=== PATIENT | male | born 1965 | race Caucasian/White ===

== ENCOUNTER 2020-01-29 12:59 | Inpatient (IN) | payer BC ==
--- NOTE | 2020-01-29 13:02 | ERPHSYRPT ---
- History of Present Illness Time Seen by Provider: 01/29/20 13:02 Source: patient Exam Limitations: no limitations Physician History: This is a 54-year-old overweight white male who presents with worsening cough and shortness of air over 1 week. Patient was diagnosed with positive Covid test on 01/22/2020. Symptoms did improve over the weekend but then in the last 2 to 3 days his symptoms are worse. He has had no abdominal pain. He had no nausea vomiting or diarrhea. Patient states that opioids of any kind give him significant nausea and vomiting. Patient states he is not known to be allergic to intravenous dye. He has no known kidney disease. He has no known heart disease. Patient states that he does not want any Tylenol. Timing/Duration: week(s) (one) Activities at Onset: rest Severity of Dyspnea-Max: moderate Severity of Dyspnea-Current: moderate Possible Cause: no prior episodes Modifying Factors: Improves With: coughing, exertion Associated Symptoms: cough Allergies/Adverse Reactions: Opioids - Morphine Analogues Allergy (Verified 01/29/20 13:04) Home Medications: No Reportable Medications [No Reported Medications] 01/29/20 [History] Travel Risk - International Travel Have you traveled outside of the country in past 3 weeks: No - Coronavirus Screening Are you exhibiting any of the following symptoms?: Yes Symptoms: Fever, Cough: New Onset, Shortness of Breath, Headaches/Body Aches/Fatigue Close contact with a COVID-19 positive Pt in past 14-21 Days: Yes - Review of Systems Constitutional: Fever, Weakness Eyes: No Symptoms Ears, Nose, & Throat: No Symptoms Respiratory: Cough, Dyspnea Cardiac: No Symptoms Abdominal/Gastrointestinal: No Symptoms Genitourinary Symptoms: No Symptoms Musculoskeletal: No Symptoms Skin: No Symptoms Neurological: No Symptoms Psychological: No Symptoms Endocrine: No Symptoms Hematologic/Lymphatic: No Symptoms Immunological/Allergic: No Symptoms All Other Systems: Reviewed and Negative - Past Medical History Pertinent Past Medical History: No Neurological History: No Pertinent History ENT History: No Pertinent History Cardiac History: No Pertinent History Respiratory History: No Pertinent History Endocrine Medical History: No Pertinent History Musculoskeletal History: No Pertinent History GI Medical History: No Pertinent History History: No Pertinent History Psycho-Social History: No Pertinent History Male Reproductive Disorders: No Pertinent History - Past Surgical History Past Surgical History: No - Nursing Vital Signs Nursing Vital Signs: Initial Vital Signs Temperature 100.5 F 01/29/20 13:06 Pulse Rate 103 H 01/29/20 13:06 Respiratory Rate 42 H 01/29/20 13:06 Blood Pressure 165/99 01/29/20 13:06 O2 Sat by Pulse Oximetry 91 L 01/29/20 13:06 Pain Scale Pain Intensity 5 - Physical Exam General Appearance: moderate distress, alert, anxiety, obese Eye Exam: PERRL/EOMI, eyes nml inspection Ears, Nose, Throat Exam: hearing grossly normal, normal ENT inspection, normal pharynx Neck Exam: normal inspection, non-tender, supple, full range of motion Respiratory Exam: normal breath sounds, lungs clear, respiratory distress (Mild), airway intact, No chest tenderness Cardiovascular/Chest Exam: normal heart sounds, regular rate/rhythm, normal peripheral pulses, No murmur Abdominal/Gastrointestinal Exam: soft, normal bowel sounds, No tenderness Rectal Exam: not done Extremity Exam: non-tender, normal range of motion, normal inspection, no calf tenderness, no pedal edema, pelvis stable Neurologic Exam: alert, oriented x 3, cooperative, group dynamics instructor II-XII nml as tested, normal mood/affect, nml cerebellar function, nml station & gait, sensation nml Skin Exam: normal color, warm, dry Lymphatic Exam: No adenopathy SpO2 Interpretation: normal O2 Delivery: Room Air - Course Nursing assessment & vital signs reviewed: Yes EKG Interpreted by Me: RATE (99), Sinus Rhythm, NORMAL INTERVALS, Other (S1/q 3 pattern. No acute ischemic changes.) Ordered Tests: Active Orders 24 hr Category Date Time Status Structural Biologist STAT Care 01/29/20 13:03 Active EKG-ER Only STAT Care 01/29/20 13:02 Active IV Insertion STAT Care 01/29/20 13:02 Active IV Insertion-2nd Peripheral STAT Care 01/29/20 13:18 Active Isolation, Initiate & Maintain STAT Care 01/29/20 13:05 Active Pulse Oximetry (ED) STAT Care 01/29/20 13:02 Active CHEST 1 VIEW (PORTABLE) Stat Exams 01/29/20 13:03 Completed BLOOD CULTURE Stat Lab 01/29/20 13:40 Received CBC W DIFF Stat Lab 01/29/20 13:40 Completed CMP Routine Lab 01/29/20 13:40 Completed D-DIMER QUANTITATIVE Stat Lab 01/29/20 13:40 Completed Ferritin Stat Lab 01/29/20 13:40 Received INFLUENZA A+B PEYMAN Stat Lab 01/29/20 13:40 Completed LDH-LACTATE DEHYDROGENASE Routine Lab 01/29/20 13:40 Completed Lactic Acid Stat Lab 01/29/20 13:15 Completed Manual Differential NC Stat Lab 01/29/20 13:40 Completed [place] Screen Stat Lab 01/29/20 13:40 Completed NT PRO BNP Routine Lab 01/29/20 13:40 Completed TROPONIN Q3H Lab 01/29/20 13:40 Completed TROPONIN Q3H Lab 01/29/20 16:15 Ordered TROPONIN Q3H Lab 01/29/20 19:15 Ordered TROPONIN Q3H Lab 01/29/20 22:15 Ordered TROPONIN Q3H Lab 01/30/20 01:15 Ordered Transfer Order Routine Transfer 01/29/20 Ordered Medication Summary Generic Name Dose Route Start Last Admin Trade Name Freq PRN Reason Stop Dose Admin Sodium Chloride 1,000 mls @ 50 mls/hr 01/29/20 13:15 01/29/20 13:15 Sodium Chloride 0.9% 1000 Ml IV 02/28/20 13:14 50 mls/hr .Q20H ИВАН Administration Ceftriaxone Sodium/Dextrose 1 g in 50 mls @ 100 mls/hr 01/29/20 14:49 01/29/20 14:57 Rocephin 1 Gm-D5w 50 Ml Bag IV 01/29/20 15:18 100 mls/hr STAT STA 100 mls/hr Administration Discontinued Medications Generic Name Dose Route Start Last Admin Trade Name Freq PRN Reason Stop Dose Admin Benzonatate 200 mg 01/29/20 14:02 01/29/20 14:04 Tessalon Perles 100 Mg PO 01/29/20 14:03 200 mg STAT ONE Administration Benzonatate Confirm 01/29/20 14:03 Tessalon Perles 100 Mg Administered 01/29/20 14:04 Dose 200 mg PO .STK-MED ONE Dexamethasone Sodium Phosphate 6 mg 01/29/20 13:44 01/29/20 13:52 Decadron 4 Mg Inj IV 01/29/20 13:45 6 mg STAT ONE Administration Dexamethasone Sodium Phosphate Confirm 01/29/20 13:50 Decadron 4 Mg Inj Administered 01/29/20 13:51 Dose 4 mg .ROUTE .STK-MED ONE Dexamethasone Sodium Phosphate Confirm 01/29/20 13:51 Decadron 4 Mg Inj Administered 01/29/20 13:52 Dose 4 mg .ROUTE .STK-MED ONE Ceftriaxone Sodium/Dextrose Confirm 01/29/20 14:54 Rocephin 1 Gm-D5w 50 Ml Bag Administered 01/29/20 14:55 Dose 1 g in 50 mls @ ud IV .STK-MED ONE Lab/Rad Data: Laboratory Result Diagrams 01/29/20 13:40 01/29/20 13:40 Laboratory Results 01/29/20 01/29/20 01/29/20 Range/Units 13:40 13:40 13:40 WBC (4.0-10.5) K/mm3 RBC (4.1-5.6) M/mm3 Hgb (12.5-18.0) gm/dl Hct (42-50) % MCV (78-100) fl MCH (26-32) pg MCHC (32-36) g/dl RDW (11.5-14.0) % Plt Count (150-450) K/mm3 MPV (7.5-11.0) fl D-Dimer (215-500) ng/mL Sodium 138 (137-145) mmol/L Potassium 3.5 (3.5-5.1) mmol/L Chloride 102 (98-107) mmol/L Carbon Dioxide 27 (22-30) mmol/L Anion Gap 12.5 (5-15) MEQ/L BUN 13 (9-20) mg/dL Creatinine 0.88 (0.66-1.25) mg/dL Estimated GFR > 60.0 ML/MIN Glucose 133 H (74-106) mg/dL Lactic Acid (0.4-2.0) Calcium 8.6 (8.4-10.2) mg/dL Total Bilirubin 0.80 (0.2-1.3) mg/dL AST 50 (17-59) U/L ALT 52 H (0-50) U/L Alkaline Phosphatase 62 (38-126) U/L Lactate Dehydrogenase 329 H (120-246) U/L Troponin I < 0.012 (0.000-0.034) ng/mL NT-Pro-B Natriuret Pep 20.8 (0-900) pg/mL Serum Total Protein 7.6 (6.3-8.2) g/dL Albumin 4.2 (3.5-5.0) g/dL Monoscreen NEGATIVE (Negative) Influenza Type A Ag (NEGATIVE) Influenza Type B Ag (NEGATIVE) Group A Strep Antibody DETECTED (NEGATIVE) 01/29/20 01/29/20 01/29/20 Range/Units 13:40 13:40 13:40 WBC 6.4 (4.0-10.5) K/mm3 RBC 5.77 H (4.1-5.6) M/mm3 Hgb 15.8 (12.5-18.0) gm/dl Hct 49.3 (42-50) % MCV 85.4 (78-100) fl MCH 27.4 (26-32) pg MCHC 32.0 (32-36) g/dl RDW 14.9 H (11.5-14.0) % Plt Count 194 (150-450) K/mm3 MPV 10.7 (7.5-11.0) fl D-Dimer 371 (215-500) ng/mL Sodium (137-145) mmol/L Potassium (3.5-5.1) mmol/L Chloride (98-107) mmol/L Carbon Dioxide (22-30) mmol/L Anion Gap (5-15) MEQ/L BUN (9-20) mg/dL Creatinine (0.66-1.25) mg/dL Estimated GFR ML/MIN Glucose (74-106) mg/dL Lactic Acid (0.4-2.0) Calcium (8.4-10.2) mg/dL Total Bilirubin (0.2-1.3) mg/dL AST (17-59) U/L ALT (0-50) U/L Alkaline Phosphatase (38-126) U/L Lactate Dehydrogenase (120-246) U/L Troponin I (0.000-0.034) ng/mL NT-Pro-B Natriuret Pep (0-900) pg/mL Serum Total Protein (6.3-8.2) g/dL Albumin (3.5-5.0) g/dL Monoscreen (Negative) Influenza Type A Ag NEGATIVE (NEGATIVE) Influenza Type B Ag NEGATIVE (NEGATIVE) Group A Strep Antibody (NEGATIVE) 01/29/20 Range/Units 13:15 WBC (4.0-10.5) K/mm3 RBC (4.1-5.6) M/mm3 Hgb (12.5-18.0) gm/dl Hct (42-50) % MCV (78-100) fl MCH (26-32) pg MCHC (32-36) g/dl RDW (11.5-14.0) % Plt Count (150-450) K/mm3 MPV (7.5-11.0) fl D-Dimer (215-500) ng/mL Sodium (137-145) mmol/L Potassium (3.5-5.1) mmol/L Chloride (98-107) mmol/L Carbon Dioxide (22-30) mmol/L Anion Gap (5-15) MEQ/L BUN (9-20) mg/dL Creatinine (0.66-1.25) mg/dL Estimated GFR ML/MIN Glucose (74-106) mg/dL Lactic Acid 2.3 H (0.4-2.0) Calcium (8.4-10.2) mg/dL Total Bilirubin (0.2-1.3) mg/dL AST (17-59) U/L ALT (0-50) U/L Alkaline Phosphatase (38-126) U/L Lactate Dehydrogenase (120-246) U/L Troponin I (0.000-0.034) ng/mL NT-Pro-B Natriuret Pep (0-900) pg/mL Serum Total Protein (6.3-8.2) g/dL Albumin (3.5-5.0) g/dL Monoscreen (Negative) Influenza Type A Ag (NEGATIVE) Influenza Type B Ag (NEGATIVE) Group A Strep Antibody (NEGATIVE) - Progress Progress: improved, re-examined Air Movement: fair Progress Note: 01/29/20 14:11 Portable chest x-ray demonstrates diffuse bilateral hazy patchy airspace disease without consolidation or large effusion. 01/29/20 15:03 Medical decision making: This patient with known COVID-19 infection presents with worsening shortness of breath and cough. He was mildly hypoxic upon arriva l in room air. I spoke with Dr. Esquivel, the hospitalist caring for COVID-19 patients, and I reviewed the patient history condition, chest x-ray findings, EKG findings and lab results with him. He accepts the patient for admission. Blood Culture(s) Obtained: Yes Antibiotics given: No Counseled pt/family regarding: lab results, diagnosis, need for follow-up, rad results - Departure Departure Disposition: In-patient Admission Clinical Impression: Hypoxia, Pneumonia due to COVID-19 virus, Strep pharyngitis Condition: Fair Critical Care Time: Yes Critical Care Time(excluding separately billable procedures): Critical 30-74 mins Referrals: MINISTERIO LAUREN DO [Primary Care Provider] -
[2020-01-29] MEDS ORDERED: Sodium Chloride 0.9% 1000 ML 1,000 ML ONE (13:13)
[2020-01-29] MEDS ORDERED: Sodium Chloride 0.9% 1000 ML 1,000 ML IV SCH (13:15)
--- NOTE | 2020-01-29 13:33 | XRAY ---
Indication: Short of breath. Positive Covid 19. Comparison: None Portable chest demonstrates diffuse bilateral hazy patchy airspace disease without consolidation/large effusion. Heart is not enlarged. Bony thorax intact.
[2020-01-29] MEDS ORDERED: Decadron 4 MG INJ IV ONE (13:44)
[2020-01-29] MEDS ORDERED: Decadron 4 MG INJ ONE ×3 (13:50→20:43)
[2020-01-29 13:57] LABS: Hematocrit 49.3 % (42-50); Hemoglobin 15.8 gm/dl (12.5-18.0); Mean Cell Volume 85.4 fl (78-100); Mean Corpuscular Hemoglobin 27.4 pg (26-32); Mean Platelet Volume 10.7 fl (7.5-11.0); Platelet Count 194 K/mm3 (150-450); Red Blood Count 5.77 M/mm3 (4.1-5.6); Red Cell Distribution Width 14.9 % (11.5-14.0); White Blood Count 6.4 K/mm3 (4.0-10.5)
[2020-01-29] MEDS ORDERED: Tessalon Perles 100 MG PO ONE ×2 (14:02→14:03)
[2020-01-29 14:18] LABS: ALBUMIN 4.2 g/dL (3.5-5.0); ALKALINE PHOSPHATASE 62 U/L (38-126); ANION GAP 12.5 MEQ/L (5-15); BLOOD UREA NITROGEN 13 mg/dL (9-20); CHLORIDE 102 mmol/L (98-107); Calcium 8.6 mg/dL (8.4-10.2); Carbon Dioxide 27 mmol/L (22-30); Creatinine 1 0.88 mg/dL (0.66-1.25); EST GLOMERULAR FILTRATION RATE > 60.0 ML/MIN; Glucose 133 mg/dL (74-106); LDH-LACTATE DEHYDROGENASE 329 U/L (120-246); NT PRO BNP 20.8 pg/mL (0-900); Potassium 3.5 mmol/L (3.5-5.1); SGOT/AST 50 U/L (17-59); SGPT/ALT 52 U/L (0-50); SODIUM 138 mmol/L (137-145); Total Protein 7.6 g/dL (6.3-8.2)
[2020-01-29 14:19] LABS: TROPONIN < 0.012 ng/mL (0.000-0.034)
[2020-01-29 14:28] LABS: INFLUENZA A NEGATIVE (NEGATIVE); INFLUENZA B NEGATIVE (NEGATIVE)
[2020-01-29] MEDS ORDERED: ROCEPHIN 1 Gm-D5w 50 ml Bag** 1 G/50 ML IVPB IV STA (14:49)
[2020-01-29] MEDS ORDERED: ROCEPHIN 1 Gm-D5w 50 ml Bag** 1 G/50 ML IVPB IV ONE (14:54)
[2020-01-29 16:30] LABS: BAND 3 % (0.0-2.0); Lymphocytes 24 % (24-44); Monocyte 6 % (0.0-12.0); Neutrophils 67 % (36.-66.); Platelet Estimate NORMAL (NORMAL); Total Cells Counted 100
[2020-01-29] MEDS ORDERED: Tessalon Perles 100 MG PO PRN (16:49)
[2020-01-29] MEDS ORDERED: Zofran 4 MG/2 ML VIAL IV PRN (16:49)
[2020-01-29] MEDS ORDERED: REMDESIVIR 200 MG in Sodium Chloride 0.9% 250 ML 250 ML IV ONE (18:00)
[2020-01-29] MEDS ORDERED: Ativan 2 MG/1 ML VIAL IV PRN (18:52)
[2020-01-29] MEDS ORDERED: Decadron 4 MG INJ IV SCH (19:00)
[2020-01-29] MEDS ORDERED: Zestril 20 MG ONE (20:43)
[2020-01-29] MEDS ORDERED: ENOXAPARIN SODIUM SQ SCH (22:00)
[2020-01-30] MEDS: Zestril 20 MG PO SCH (05:31)
[2020-01-30 05:32] LABS: Hematocrit 46.9 % (42-50); Hemoglobin 15.1 gm/dl (12.5-18.0); Mean Cell Volume 85.4 fl (78-100); Mean Corpuscular Hemoglobin 27.5 pg (26-32); Mean Corpuscular Hgb Concent. 32.2 g/dl (32-36); Mean Platelet Volume 10.4 fl (7.5-11.0); Platelet Count 194 K/mm3 (150-450); Red Blood Count 5.49 M/mm3 (4.1-5.6); Red Cell Distribution Width 14.8 % (11.5-14.0); White Blood Count 4.9 K/mm3 (4.0-10.5)
[2020-01-30 05:48] LABS: ANION GAP 11.8 MEQ/L (5-15); BLOOD UREA NITROGEN 15 mg/dL (9-20); CHLORIDE 103 mmol/L (98-107); Calcium 8.4 mg/dL (8.4-10.2); Carbon Dioxide 25 mmol/L (22-30); Creatinine 1 0.64 mg/dL (0.66-1.25); EST GLOMERULAR FILTRATION RATE > 60.0 ML/MIN; Glucose 210 mg/dL (74-106); Potassium 4.1 mmol/L (3.5-5.1); SODIUM 136 mmol/L (137-145)
[2020-01-30 07:27] LABS: Lymphocytes 22 % (24-44); Monocyte 8 % (0.0-12.0); Neutrophils 70 % (36.-66.); Platelet Estimate NORMAL (NORMAL); Total Cells Counted 100
[2020-01-30] MEDS: ROCEPHIN 1 Gm-D5w 50 ml Bag** 1 G/50 ML IVPB IV SCH (10:27)
[2020-01-30] MEDS: Sodium Chloride 0.9% 1000 ML 1,000 ML IV SCH ×2 (10:27→22:05)
[2020-01-30] MEDS: Decadron 4 MG INJ IV SCH ×2 (10:28→21:57)
--- NOTE | 2020-01-30 12:07 | HP ---
CHIEF COMPLAINT: Shortness of breath, cough, fatigue. HISTORY OF PRESENT ILLNESS: The patient has known he had COVID for several days. The symptoms did improve over the weekend. Initially diagnosed on 01/22/2020. He had no nausea, vomiting, diarrhea. He just felt like he could not get his air so he came in. In the emergency room his O2 was really in the low 90's on room air. He was coughing. His chest is clear. His D-dimer was actually normal. His chest x-ray showed minimal infiltrates. He was very anxious, very distraught and he was admitted for treatment. He works at the [employer] where there are numerous people with this and his family members are being tested now. Symptoms fever, cough however the fever is over with. Shortness of breath, headaches, myalgia, fatigue. MEDICATIONS: None. ALLERGIES: NARCOTICS MAKE HIM NAUSEATED. TRAVEL RISK: No international travel. PAST MEDICAL HISTORY: No pertinent past history really except for the history of untreated hypertension. PAST SURGICAL HISTORY: No surgeries. REVIEW OF SYSTEMS: HEENT: Dry mucosal membranes. Hears and sees okay. CVS: No chest pain. No history of myocardial infarction. He said he has high blood pressure but not taking any medicine. : No symptoms. SKIN: No problems. NEUROLOGICAL: No problems. SOCIAL HISTORY: The patient is . He works at the [employer]. PHYSICAL EXAMINATION: On admission the patient's temperature was 100.5F, pulse 100, respirations 42, blood pressure 165/99. O2 saturation was 91. His pain intensity was 5. GENERAL: When I examined he was a little bit anxious, irritable, in no severe distress. HEENT: Seems to hear and see fine. NECK: No JVD. CHEST: Clear. CVS: No murmurs or gallops. ABDOMEN: Obese. No tenderness or organomegaly. EXTREMITIES: No edema. Some chronic stasis changes in the ankles. IMPRESSION: 1) COVID. The patient has COVID mostly with respiratory symptoms but he did have some GI symptoms. He has anxiety due to the shortness of breath and feeling real bad. 2) Hypertension. PLAN: At this time will treat him as though he has COVID pneumonia with dexamethasone 4 mg b.i.d. He did get some Rocephin in the emergency room and will discontinue that and get Remdesivir, oxygen at 2 liters and re-evaluate in the morning of course. PROGNOSIS: [place] to be good.
[2020-01-30] MEDS ORDERED: REMDESIVIR 100 MG in Sodium Chloride 0.9% 100 ML IVPB 100 ML IV SCH (18:00)
[2020-01-30] MEDS ORDERED: ENOXAPARIN SODIUM SQ SCH (22:00)
[2020-01-31] MEDS: Zestril 20 MG PO SCH (09:24)
[2020-01-31] MEDS: Decadron 4 MG INJ IV SCH (09:24)
[2020-01-31] MEDS: ROCEPHIN 1 Gm-D5w 50 ml Bag** 1 G/50 ML IVPB IV SCH (09:24)
[2020-01-31 12:36] VITALS: BP 141/76; PULSE 86; O2SAT 95
== END 2020-01-31 15:00 | disposition home or self-care (01) | DRG 177 ==
LOC: ED 12:59 → MED SURG 16:18
PROVIDERS: ADMIT Family Medicine; ATTEND Family Medicine
DX: U07.1 COVID-19 (principal); J12.89 Other viral pneumonia; R53.83 Other fatigue; F41.9 Anxiety disorder, unspecified; I10 Essential (primary) hypertension
CPT/HCPCS: 36000; 36415; 71045; 80048; 80053; 82728; 83605; 83615; 83880; 84484; 85025; 85379; 86308; 87040; 87400; 87651; 93005; 93041; 94760; 94762; 96360; 96365; 96374; 99285; 99291; J0696; J1100; J1650; A9270-GY